=== PATIENT | female | born 2000 | race Caucasian/White ===

== ENCOUNTER 2020-02-18 13:20 | Emergency (ER) | payer MEDICAID ==
[~2020-02-18] VITALS: Ht 170.2 cm; Wt 61.9 kg
--- NOTE | 2020-02-18 15:01 | NUR ---
PROVIDED PT WITH WARM BLANKETS, PT WAITING TO BE SEEN BY ED PROVIDER
[2020-02-18 16:10] LABS: BASOPHILS % (AUTO) 0.2 % (0-1); EOSINOPHILS % (AUTO) 0.1 % (0-6); HEMATOCRIT 42.8 % (35.0-45.0); HEMOGLOBIN 14.6 g/dl (12.0-16.0); LYMPHOCYTES # (AUTO) 1.1 X10'3 (1.1-4.8); MEAN CORPUSCULAR HEMOGLOBIN 31.1 PG (27.0-31.0); MEAN CORPUSCULAR HGB CONC 34.2 g/dL (33.0-36.5); MEAN PLATELET VOLUME 8.2 FL (7.4-10.4); MONOCYTES # (AUTO) 0.4 X10'3 (0-0.9); MONOCYTES % (AUTO) 3.7 % (2-12); NEUTROPHILS # (AUTO) 9.6 X10'3 (1.8-7.7); PLATELET COUNT 304 X10'3 (140-440); RED CELL DISTRIBUTION WIDTH 12.9 % (11.5-14.5); WHITE BLOOD COUNT 11.2 X10'3 (4.5-11.0)
[2020-02-18] MEDS ORDERED: dextrose 5%-1/2 normal saline 1,000 ML IV ONE (16:19)
[2020-02-18] MEDS ORDERED: pyridoxine 50mg tablet PO STA (16:19)
[2020-02-18] MEDS ORDERED: normal saline 1000ML IV soln IVB ONE (16:20)
[2020-02-18 16:23] LABS: ALANINE AMINOTRANSFERASE 46 U/L (12-78); ALBUMIN 4.5 G/DL (3.4-5.0); ALBUMIN/GLOBULIN RATIO 1.2 (1.1-1.5); ALKALINE PHOSPHATASE 68 IU/L (20-180); ANION GAP 12 (8-16); ASPARTATE AMINO TRANSFERASE 20 U/L (10-37); BILIRUBIN,TOTAL 0.6 MG/DL (0.1-1.0); BLOOD UREA NITROGEN 10 MG/DL (7-18); BUN/CREATININE RATIO 13.2 (6.6-38.0); CALCIUM 9.5 MG/DL (8.5-10.1); CHLORIDE 101 MMOL/L (99-107); CREATININE 0.76 MG/DL (0.40-0.90); GLUCOSE 75 MG/DL (70-104); POTASSIUM 3.5 MMOL/L (3.5-5.1); SODIUM 135 MMOL/L (135-145); TOTAL CARBON DIOXIDE 21.9 MMOL/L (24-32); TOTAL PROTEIN 8.4 G/DL (6.4-8.2); eGFR > 90 ML/MIN
[2020-02-18] MEDS ORDERED: diphenhydrAMINE 50 mg/ml inj IV ONE (16:25)
[2020-02-18 16:37] LABS: URINE HCG POSITIVE (NEG)
[2020-02-18 16:39] LABS: CLARITY,URINE SLIGHTLY CLOUDY (Clear); COLOR,URINE YELLOW (Yellow); GLUCOSE, URINE NEGATIVE (Neg); KETONES,URINE >=80 mg/dl (Neg); LEUKOCYTE ESTERASE ,URINE NEGATIVE (Neg); NITRITES, URINE NEGATIVE (Neg); OCCULT BLOOD,URINE NEGATIVE (Neg); PROTEIN,URINE 30 mg/dl (Neg); UROBILINOGEN,URINE 0.2 E.U/dL (0.2-1.0)
[2020-02-18 16:44] LABS: UA COLLECTION TYPE CLN CATCH MIDSTREAM
[2020-02-18 16:47] LABS: MUCUS STRANDS MANY /LPF (Neg); SQUAMOUS EPITHELIAL CELL,UR MANY /LPF (FEW)
[2020-02-18 16:48] LABS: BACTERIA,URINE 1+ /HPF (Neg); RBC,URINE 0-2 /HPF (0-2); WBC,URINE 0-4 /HPF (0-4)
[2020-02-18] MEDS ORDERED: DOXY1TAB3 PO (17:37)
[2020-02-18 17:53] VITALS: BP 110/69
== END 2020-02-18 17:55 | disposition home or self-care (01) ==
LOC: ER 13:20
DX: O21.0 Mild hyperemesis gravidarum (principal); F12.90 Cannabis use, unspecified, uncomplicated; R11.2 Nausea with vomiting, unspecified; Z79.899 Other long term (current) drug therapy
CPT/HCPCS: 36415; 80053; 81001; 81025; 85025; 96361; 96374; 99283; J1200; J7030